=== PATIENT | female | born 1965 | race Caucasian/White ===

== ENCOUNTER 2020-02-25 11:39 | Emergency (ER) | payer MEDICAID, SELFPAY ==
[2020-02-25 11:55] VITALS: BP 149/86; PULSE 88; RESP 20; TEMP 37.2; O2SAT 98; BMI 33.0
--- NOTE | 2020-02-25 12:11 | HMH.EDUTC ---
[facility] [place] Clinical Impression: Exposure to COVID-19 virus Sinusitis Qualifiers: Sinusitis location: unspecified location Chronicity: acute Recurrence: non-recurrent Qualified Code(s): J01.90 - Acute sinusitis, unspecified Disposition: Home, Self-Care Condition on Discharge: Good Instructions: Sinusitis, DI for Sinusitis, Preventing the Spread of Coronavirus Discharge Instructions Additional Instructions: Drink plenty of fluids. Take tylenol for pain or fever. Take the medications as directed. Follow up with your regular doctor. GO TO THE ER FOR ANY WORSENING SYMPTOMS Prescriptions: Benzonatate [Tessalon Perle 100mg Cap] 100 mg PO TIDP PRN #30 cap PRN Reason: Cough Transmission Status: Received by [facility] Azithromycin [Z-Abilio 250mg Tab*] 250 mg PO UD DOSE PK #6 tab Transmission Status: Received by [facility] Referrals: Jabari Goncalves MD [Primary Care Provider] - Forms: Work/School Release Time of Disposition: 12:37 Medical Decision Making - Medical Records Medical records reviewed: No: I reviewed the patient's medical records. - Miki Inquiry Pt receiving controlled substance: No Vital Signs: 02/25/20 11:55 02/25/20 12:42 Temperature 98.9 F 98.9 F Temperature Source Oral Pulse Rate 88 Pulse Rate [Left Brachial] 88 Respiratory Rate 20 20 Blood Pressure 149/86 H Blood Pressure [Left Arm] 149/86 H Blood Pressure Mean [Left Arm] 107 Blood Pressure Source [Left Arm] Automatic Cuff Blood Pressure Position [Left Arm] Sitting 02 Sat by Pulse Oximetry 98 Oxygen Delivery Method Room Air Orders (Tests/Meds): ORDERS Category Date Time Status Covid-19 Nasal PCR Sendout Yoseph Routine Lab 02/25/20 12:00 Received [facility] [place]PI - General Stated complaint: congestion,fever Time Seen by Provider: 02/25/20 12:11 - History of Present Illness Provider Complaint: She states that she started feeling bad yesterday evening. This morning she woke up with a fever of 101.4, cough, chest congestion, and sinus congestion. She states that she usually gets a sinus infection every year at this time, so she hopes that is what's going on. 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 - Related Data Previous Rx's Medication Instructions Recorded Azithromycin [Z-Abilio 250mg Tab*] 250 mg PO UD DOSE PK #6 tab 02/25/20 Benzonatate [Tessalon Perle 100mg 100 mg PO TIDP PRN #30 cap 02/25/20 Cap] Allergies Allergy/AdvReac Type Severity Reaction Status Date / Time codeine [CODEINE] Allergy Unknown Verified 07/19/18 12:51 [facility] History - Hepatitis A Screen Attestation statement:: This patient has been screened for Hepatitis A risk factors. I have reviewed the patient's past medical history: Yes - Social History Smoking Status: Current every day smoker Tobacco Type: cigarettes Alcohol Intake: never Occupational Status: employed Housing: house Household Members: family Family Hx:: No significant family history ROS Obtained: Yes All systems reviewed & no additional complaints - Constitutional Constitutional: Reports chills, Reports fever(s), Reports poor appetite, Reports malaise - Eyes Eyes: Denies eye discharge - ENT Ears, Nose, Mouth, and Throat: Reports as per HPI - Cardiovascular Cardiovascular: Reports system reviewed and no additional complaints, except as docu, Denies chest pain - Respiratory Respiratory: No chest congestion, Yes cough Physical Exam - General General appearance: alert, in no apparent distress - Head Head exam: atraumatic, normocephalic, normal inspection - Eye Eye exam: Present: normal appearance, PERRL, EOMI - ENT ENT exam: Present: normal exam, normal oropharynx, mucous membranes moist, TM's normal bilaterally, normal external ear exam - Neck Neck exam: Present: normal inspection, full ROM, trachea midline. Absent: meningismus,
[2020-02-25 12:42] VITALS: BP 149/86; PULSE 88; RESP 20; TEMP 37.2; O2SAT 98
[2020-02-26 13:36] LABS: Covid-19 Nasal PCR Sendout Lex NOT DETECTED
[2020-02-27 11:38] LABS: UTC Strep Screen (Rapid) Negative (Negative)
== END 2020-02-25 12:45 | disposition home or self-care (01) ==
PROVIDERS: Emergency Provider Nurse Practitioner Family; PCP Family Medicine
DX: J01.90 Acute sinusitis, unspecified (principal); Z20.828 Contact with and (suspected) exposure to other viral communicable diseases; Z72.0 Tobacco use
CPT/HCPCS: 87880; 99202; U0004

== ENCOUNTER 2021-02-15 16:15 | Emergency (ER) | payer OTHER, SELFPAY ==
[2021-02-15 17:10] VITALS: BP 138/82; PULSE 86; RESP 16; TEMP 36.7; O2SAT 97; BMI 29.2
--- NOTE | 2021-02-15 18:00 | HMH.EDUTC ---
[facility] [place] Disposition Clinical Impression: Sinusitis Qualifiers: Sinusitis location: unspecified location Chronicity: acute Recurrence: non-recurrent Qualified Code(s): J01.90 - Acute sinusitis, unspecified Disposition: Home, Self-Care Condition on Discharge: Good Instructions: Sinusitis, DI for Sinusitis Additional Instructions: Drink plenty of fluids. Take tylenol or ibuprofen for pain or fever. Take the medications as directed. Follow up with your regular doctor. GO TO THE ER FOR ANY WORSENING SYMPTOMS Quarantine until you know the results of your covid-19 test. If it is positive, the health department should call you and give you further instructions about your length of Quarantine and other things. Notify your school or workplace of your results and follow their instructions regarding return to work/school. Prescriptions: methylPREDNISolone [Medrol] 4 mg PO DIRECTED 6 Days #21 packet Transmission Status: Received by [facility] Azithromycin [Z-Abilio 250mg Tab*] 250 mg PO UD DOSE PK #6 tab Transmission Status: Received by [facility] Referrals: Jabari Goncalves MD [Primary Care Provider] - Forms: Work/School Release Time of Disposition: 18:03 Medical Decision Making - Medical Records Medical records reviewed: No: I reviewed the patient's medical records. - Miki Inquiry Pt receiving controlled substance: No Vital Signs: 02/15/21 17:10 02/15/21 18:12 Temperature 98.1 F 98.1 F Temperature Source Oral Pulse Rate 86 Pulse Rate [Right Brachial] 86 Respiratory Rate 16 16 Blood Pressure 138/82 Blood Pressure [Right Arm] 138/82 Blood Pressure Mean [Right Arm] 100 Blood Pressure Source [Right Arm] Automatic Cuff Blood Pressure Position [Right Arm] Sitting 02 Sat by Pulse Oximetry 97 Oxygen Delivery Method Room Air Orders (Tests/Meds): ORDERS Category Date Time Status Covid-19 Nasal PCR ([facility]) Routine Lab 02/15/21 18:15 Received [facility] [place] HPI - General Stated complaint: head congested,ears Time Seen by Provider: 02/15/21 18:00 Mode of Arrival: Ambulatory Source of Information: Patient Limitations: No Limitations Description of Symptoms (Recalled from Triage Doc. by RN): PATIENT C/O EAR PAIN WITH DECREASED HEARING, LIGHT-HEADED, HEAD AND CHEST CONGESTION, HEADACHE AND WEAKNESS HEENT Symptoms (Recalled from RN notes): Yes Resp Symptoms (Recalled from RN notes): No Skin Symptoms (Recalled from RN notes): No MS Symptoms (Recalled from RN notes): No Functional Status (Recalled from RN notes): WNL - History of Present Illness Provider Complaint: She c/o 2 days of worsening sinus congestion and ear pain. She denies any fever or chills. She has been vaccinated against covid-19. - Related Data Previous Rx's Medication Instructions Recorded Azithromycin [Z-Abilio 250mg Tab*] 250 mg PO UD DOSE PK #6 tab 02/25/20 Benzonatate [Tessalon Perle 100mg 100 mg PO TIDP PRN #30 cap 02/25/20 Cap] Azithromycin [Z-Abilio 250mg Tab*] 250 mg PO UD DOSE PK #6 tab 02/15/21 methylPREDNISolone [Medrol] 4 mg PO DIRECTED 6 Days #21 02/15/21 packet Allergies Allergy/AdvReac Type Severity Reaction Status Date / Time codeine [CODEINE] Allergy Unknown Verified 07/19/18 12:51 - Worker's Comp Is this a Worker's Comp case?: No [facility] History - Hepatitis A Screen Drug use history?: No High risk sexual behaviors?: No History of sexually transmitted infection?: No Currently employed?: No Childcare worker?: No Do you have indoor plumbing?: Yes Do you have electricity?: Yes Attestation statement:: This patient has been screened for Hepatitis A risk factors. I have reviewed the patient's past medical history: Yes Laterality Cases: Bilateral: Tonsillectomy - Social History Smoking Status: Current every day smoker Tobacco Type: cigarettes Alcohol Intake: never Occupational Status: other Housing: house Household Members: family Family Hx:: No significant family hi
[2021-02-15 18:12] VITALS: BP 138/82; PULSE 86; RESP 16; TEMP 36.7; O2SAT 97
== END 2021-02-15 18:18 | disposition home or self-care (01) ==
PROVIDERS: Emergency Provider Nurse Practitioner Family; PCP Family Medicine
DX: J01.90 Acute sinusitis, unspecified (principal); F17.210 Nicotine dependence, cigarettes, uncomplicated; Z20.822 Contact with and (suspected) exposure to COVID-19
CPT/HCPCS: 99202; C9803; G0463; U0003; U0005

== ENCOUNTER 2021-07-24 12:17 | Emergency (ER) | payer OTHER, SELFPAY ==
[2021-07-24] VITALS (8 sets, daily range): BP systolic 139–174; BP diastolic 89–103; PULSE 80–90; RESP 14–20; TEMP 36.8; O2SAT 98–100; BMI 28.7
--- NOTE | 2021-07-24 12:15 | ECG_ITS ---
APPROVED REPORT Exam: Resting ECG HR:85 bpm ECG Measurements Heart Rate 85 AXES IA 131 P 67 QRSd 89 QRS 68 QT 353 T 50 QTc 395 Conclusion SINUS RHYTHM NORMAL ECG UNCONFIRMED REPORT Electronically signed by : Dean Davila MD 07/28/2021 17:37:35
--- NOTE | 2021-07-24 12:26 | XR_ITS ---
PROCEDURE INFORMATION: Exam: XR Chest Exam date and time: 07/24/2021 12:28 PM Age: 56 years old Clinical indication: Pain; Chest pressure; Additional info: Chest pain TECHNIQUE: Imaging protocol: XR of the chest. Views: 1 view. COMPARISON: CR CXR CHEST(2 VIEWS-NOT PORTABLE) 05/17/2016 1:03 PM FINDINGS: Lungs: No evidence of an active pulmonary process. No focal consolidation. Old granulomatous disease. Pleural spaces: Unremarkable. No pleural effusion. No pneumothorax. Heart/Mediastinum: Unremarkable. No cardiomegaly. Bones/joints: Scoliosis and degenerative changes of the spine. IMPRESSION: No acute process.
--- NOTE | 2021-07-24 12:28 | PC.NURSE ---
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
[2021-07-24 12:42] LABS: Basophils # 0.2 K/mm3 (0-0.2); Basophils % 2.2 % (0.1-2.0); Eosinophils # 0.1 K/mm3 (0.0-0.4); Eosinophils % 1.4 % (0.1-12.0); Hematocrit 43.2 % (37.0-47.0); Hemoglobin 13.7 g/dL (12.2-16.2); Lymphocytes # 2.9 K/mm3 (0.7-4.5); Lymphocytes % 35.5 % (10-50); Mean Corpuscular HGB Conc 31.6 g/dL (31.8-35.4); Mean Corpuscular Volume 98.2 fl (81-99); Mean Platelet Volume 8.7 fl (7.4-10.4); Monocytes # 0.5 K/mm3 (0.1-1.0); Monocytes % 5.8 % (1.7-9.3); Neutrophils # 4.5 K/mm3 (1.8-7.8); Neutrophils % 55.1 % (37.0-80.0); Platelet Count 287 K/mm3 (142-424); Red Cell Distribution Width 13.3 % (11.5-17.5); White Blood Count 8.2 K/mm3 (4.8-10.8)
[2021-07-24 12:43] LABS: Chloride 102 mmol/L (98-107); Potassium 3.9 mmoL/L (3.5-5.1); Sodium 136 mmol/L (136-145)
[2021-07-24 12:46] LABS: Alanine Aminotransferase 27 U/L (12-78); Albumin Level 4.3 g/dl (3.5-5.0); Albumin/Globulin Ratio 1.4 (1.1-1.8); Alkaline Phosphatase 64 U/L (38-126); Anion Gap 8.9 mEq/L (5-15); Aspartate Amino Transferase 39 U/L (14-36); Bilirubin,Total 0.6 mg/dl (0.2-1.3); Blood Urea Nitrogen 13 mg/dl (7-17); Carbon Dioxide 29 mmol/L (22.0-30.0); Creatinine Clearance Estimated 117 mL/min (50-200); Estimated Glomerular Filt Rate 104 ml/min (>60); GFR (African American) 126 ML/MIN (>60); Globulin 3.1 g/dL (1.3-3.2); Total Protein,Serum 7.4 g/dl (6.3-8.2)
[2021-07-24 12:47] LABS: Calcium 8.9 mg/dl (8.4-10.2); Glucose 102 mg/dl (74-100)
[2021-07-24 13:01] LABS: Troponin I < 0.01 ng/ml (0.00-0.034)
[2021-07-24 13:06] LABS: Activated Partial Thrombo Time 23.7 seconds (22.8-30.6); INR 0.98 (0.9-1.1); Prothrombin Time 11.1 seconds (10.1-12.5)
--- NOTE | 2021-07-24 13:41 | HMH.EDCP ---
ED Disposition Clinical Impression: Chest pain Disposition: Home, Self-Care Condition on Discharge: Fair Referrals: Jabari Goncalves MD [Primary Care Provider] - - Critical Care Critical Care Time: No Attestation: On 07/24/21, the high probability of a clinically significant, sudden or life threatening deterioration of the following system(s) required my full and direct attention, intervention and personal management. The time I documented below is in addition to time spent performing reported procedures but includes the following listed in this critical care notation. Medical Decision Making - Medical Records Medical records reviewed: Yes: I reviewed the patient's medical records. - Miki Inquiry Pt receiving controlled substance: No Miki was queried for this patient: No Vital Signs: 07/24/21 12:28 07/24/21 13:08 07/24/21 13:10 Temperature 98.2 F Temperature Source Oral Pulse Rate 89 82 Pulse Rate [Left Radial] 80 Respiratory Rate 17 18 17 Blood Pressure 157/103 H 151/99 H Blood Pressure [Right Arm] 174/102 H Blood Pressure Mean 117 Blood Pressure Mean [Right Arm] 126 Blood Pressure Source Automatic Cuff 02 Sat by Pulse Oximetry 100 98 99 07/24/21 13:30 07/24/21 13:50 07/24/21 14:10 Temperature Temperature Source Pulse Rate 86 90 89 Pulse Rate [Left Radial] Respiratory Rate 14 20 18 Blood Pressure 151/93 H 161/99 H 149/91 H Blood Pressure [Right Arm] Blood Pressure Mean 116 118 123 Blood Pressure Mean [Right Arm] Blood Pressure Source 02 Sat by Pulse Oximetry 98 99 98 07/24/21 14:30 Temperature Temperature Source Pulse Rate 86 Pulse Rate [Left Radial] Respiratory Rate 16 Blood Pressure 139/90 Blood Pressure [Right Arm] Blood Pressure Mean 112 Blood Pressure Mean [Right Arm] Blood Pressure Source 02 Sat by Pulse Oximetry 98 - Lab Data Lab results reviewed: Yes: I reviewed the patient's lab results. Lab Results 07/24/21 12:19: WBC 8.2, RBC 4.40, Hgb 13.7, Hct 43.2, MCV 98.2, MCH 31.0, MCHC 31.6 L, RDW 13.3, Plt Count 287, MPV 8.7, Neut % (Auto) 55.1, Lymph % (Auto) 35.5, Caroline % (Auto) 5.8, Eos % (Auto) 1.4, Baso % (Auto) 2.2 H, Neut # (Auto) 4.5, Lymph # (Auto) 2.9, Caroline # (Auto) 0.5, Eos # (Auto) 0.1, Baso # (Auto) 0.2 07/24/21 12:19: PT 11.1, INR 0.98, APTT 23.7 07/24/21 12:19: Sodium 136, Potassium 3.9, Chloride 102, Carbon Dioxide 29, Anion Gap 8.9, BUN 13, Creatinine 0.60, Estimated Creat Clear 117, Estimated GFR 104, Est GFR ( Amer) 126, Glucose 102 H, Calcium 8.9, Total Bilirubin 0.6, AST 39 H, ALT 27, Alkaline Phosphatase 64, Troponin I < 0.01, Total Protein 7.4, Albumin 4.3, Globulin 3.1, Albumin/Globulin Ratio 1.4 Result diagrams: 07/24/21 12:19 07/24/21 12:19 Orders (Tests/Meds): ORDERS Category Date Time Status Troponin I Q3H Lab 07/24/21 15:30 Ordered Troponin I Q3H Lab 07/24/21 18:30 Ordered Medical Decision Narrative: Is a 56 female with past medical history of hyperlipidemia presenting to the ED for chest pain. Patient is awake, alert, not in acute distress. Patient is medically stable, afebrile. Patient's physical exam is unremarkable. Differential includes but is not limited to ACS, pneumothorax, very low concern for pulmonary embolism, aortic dissection. Given this a CBC, CMP, coags, troponin performed, chest x-ray performed. Chest x-ray without any widened mediastinum, pneumonia, pneumothorax. EKG without any ST elevations or depressions. lab work unremarkable, initial troponin negative. second troponin negative. Patient is stable for discharge. Patient given strict return precautions and follow up instructions. Chest Pain HPI - General Chief Complaint: Chest Pain Stated Complaint: CP Time Seen by Provider: 07/24/21 13:41 Mode of Arrival: Ambulatory Limitations: No Limitations Description of Symptoms (Recalled from ER Triage Doc. by RN): pt to ed c/o left sided chest pain that radiates bet
--- NOTE | 2021-07-24 14:40 | PC.NURSE ---
updated on poc
[2021-07-24 15:59] LABS: Troponin I < 0.01 ng/ml (0.00-0.034)
== END 2021-07-24 16:10 | disposition home or self-care (01) ==
PROVIDERS: Emergency Provider Emergency Medicine; PCP Family Medicine
DX: R07.9 Chest pain, unspecified (principal); E53.1 Pyridoxine deficiency; R61 Generalized hyperhidrosis; E78.5 Hyperlipidemia, unspecified; F17.210 Nicotine dependence, cigarettes, uncomplicated; Z79.52 Long term (current) use of systemic steroids; Z79.82 Long term (current) use of aspirin; Z88.5 Allergy status to narcotic agent
CPT/HCPCS: 36415; 71045; 80053; 84484; 85025; 85610; 85730; 93005; 99284

== ENCOUNTER → 2021-11-03 07:01 | Outpatient (CLI) | payer OTHER, SELFPAY ==
[2021-11-03 07:35] LABS: Basophils # 0.1 K/mm3 (0-0.2); Basophils % 1.2 % (0.1-2.0); Eosinophils # 0.2 K/mm3 (0.0-0.4); Eosinophils % 2.8 % (0.1-12.0); Hemoglobin 13.2 g/dL (12.2-16.2); Lymphocytes % 38.3 % (10-50); Mean Corpuscular HGB Conc 30.8 g/dL (31.8-35.4); Mean Corpuscular Volume 104.1 fl (81-99); Mean Platelet Volume 8.7 fl (7.4-10.4); Monocytes # 0.5 K/mm3 (0.1-1.0); Monocytes % 9.6 % (1.7-9.3); Neutrophils # 2.6 K/mm3 (1.8-7.8); Neutrophils % 48.1 % (37.0-80.0); Platelet Count 269 K/mm3 (142-424); Red Blood Count 4.13 M/mm3 (4.20-5.40); Red Cell Distribution Width 15.5 % (11.5-17.5); White Blood Count 5.3 K/mm3 (4.8-10.8)
[2021-11-03 08:15] LABS: Chloride 104 mmol/L (98-107); Sodium 139 mmol/L (136-145)
[2021-11-03 08:16] LABS: Potassium 4.9 mmoL/L (3.5-5.1)
[2021-11-03 08:18] LABS: Alanine Aminotransferase 20 U/L (12-78); Alkaline Phosphatase 61 U/L (38-126); Anion Gap 7.9 mEq/L (5-15); Aspartate Amino Transferase 33 U/L (14-36); Bilirubin,Total 0.3 mg/dl (0.2-1.3); Carbon Dioxide 32 mmol/L (22.0-30.0)
[2021-11-03 08:19] LABS: Albumin Level 3.9 g/dl (3.5-5.0); Albumin/Globulin Ratio 1.5 (1.1-1.8); Calcium 9.6 mg/dl (8.4-10.2); Globulin 2.6 g/dL (1.3-3.2); Glucose 110 mg/dl (74-100); Total Protein,Serum 6.5 g/dl (6.3-8.2)
[2021-11-03 08:51] LABS: Thyroid Stimulating Hormone 2.74 uIU/mL (0.465-4.68)
[2021-11-03 11:48] LABS: Blood Urea Nitrogen 14 mg/dl (7-17); Estimated Glomerular Filt Rate 87 ml/min (>60); GFR (African American) 106 ML/MIN (>60)
== END ==
PROVIDERS: PCP Family Medicine; Visit Provider Family Medicine
DX: R00.0 Tachycardia, unspecified (principal); K58.9 Irritable bowel syndrome, unspecified; F32.9 Major depressive disorder, single episode, unspecified
CPT/HCPCS: 36415; 80053; 84443; 85025

== ENCOUNTER → 2022-05-10 10:50 | Outpatient (CLI) | payer OTHER, SELFPAY ==
--- NOTE | 2022-05-10 10:59 | XR_ITS ---
FINAL REPORT CLINICAL HISTORY: R SIDED CHEST AND WALL PAIN, no injury COMPARISON: Chest radiograph dated 07/24/2021 FINDINGS: A PA view of the chest and oblique views of the right ribs were obtained The cardiac and mediastinal silhouettes are within normal limits. There is new right perihilar and right basilar airspace disease concerning for pneumonia. There is a new small right pleural effusion. There is no pneumothorax. Oblique views of the right ribs reveal no displaced rib fracture. IMPRESSION: 1. No acute right rib fracture and no pneumothorax. 2. New right perihilar basilar airspace opacities concerning for pneumonia with a small right effusion. Recommend radiograph follow-up to resolution. Reviewed, Interpreted and Dictated by Tata Rojas MD Transcribed by Bety Perera Authenticated and [facility]
== END ==
PROVIDERS: PCP Family Medicine; Visit Provider Family Medicine
DX: R07.89 Other chest pain (principal)
CPT/HCPCS: 71101

== ENCOUNTER → 2022-05-31 07:31 | Outpatient (CLI) | payer OTHER, SELFPAY ==
[2022-05-31 07:37] LABS: Adenovirus F 40/41, stool Not Detected (NotDetected); Astrovirus Not Detected (NotDetected); Campylobacter Not Detected (NotDetected); Clostridium Difficile A/B, PCR Not Detected (NotDetected); Cryptosporidium Not Detected (NotDetected); Cyclospora Cayetanesis Not Detected (NotDetected); Entamoeba histolytica Not Detected (NotDetected); Enteroaggregative E coli Not Detected (NotDetected); Enteropathogenic E coli Not Detected (NotDetected); Enterotoxigenic E coli Not Detected (NotDetected); Giardia lamblia Not Detected (NotDetected); Norovirus Not Detected (NotDetected); Plesimonas Shigalloides, PCR Not Detected (NotDetected); Rotavirus A Not Detected (NotDetected); Salmonella, PCR Not Detected (NotDetected); Sapovirus Not Detected (NotDetected); Shiga-like toxin E coli Not Detected (NotDetected); Shigella Enterovasive E coli Not Detected (NotDetected); Vibrio Cholerae Not Detected (NotDetected); Vibrio, PCR Not Detected (NotDetected); Yersinia Entercolitica, PCR Not Detected (NotDetected)
== END ==
PROVIDERS: PCP Family Medicine; Visit Provider Nurse Practitioner Family
DX: R19.7 Diarrhea, unspecified (principal)
CPT/HCPCS: 87507

== ENCOUNTER 2022-06-08 10:24 | Emergency (ER) | payer OTHER, SELFPAY ==
[2022-06-08 10:26] VITALS: BP 114/80; PULSE 113; RESP 18; TEMP 36.5; O2SAT 96; BMI 26.7
--- NOTE | 2022-06-08 10:37 | PC.NURSE ---
CLIFFORD GOLDSTEIN at for patient eval
[2022-06-08 10:45] VITALS: BP 114/80; PULSE 106; RESP 16; TEMP 36.7; O2SAT 96
--- NOTE | 2022-06-08 10:45 | HMH.EDGENADL ---
Discharge Plan Disposition Patient Disposition: Home, Self-Care Condition: Good Prescriptions Prescriptions: New valacyclovir [Valtrex] 1 gram tablet 1,000 mg PO BID 7 Days Qty: 14 0RF prednisone 50 mg tablet 50 mg PO DAILY 7 Days Qty: 7 0RF No Action azithromycin 250 MG tablet 250 mg PO UD DOSE PK Qty: 6 0RF Rx Instructions: Take two (2) tablets today, then one (1) tablet days #2 thru #5 benzonatate 100 MG capsule 100 mg PO TIDP PRN (Reason: Cough) Qty: 30 0RF azithromycin 250 MG tablet 250 mg PO UD DOSE PK Qty: 6 0RF Rx Instructions: Take two (2) tablets today, then one (1) tablet days #2 thru #5 methylprednisolone 4 MG tablets,dose pack 4 mg PO DIRECTED 6 Days Qty: 21 0RF Referrals Follow up/Referrals: Jabari Goncalves MD [Primary Care Provider] - See instructions Activity Restrictions/Add. Instructions Additional Instructions/Restrictions: Avoid extremely hot and extremely cold foods. Apply artificial tears to the right eye hourly while awake and tape the eye shut at nighttime. Clinical Impressions Clinical Impression: Jones's palsy Stand Alone Forms Stand Alone Forms: Work/School Release Discharge ED Provider: Alon Pritchard General Adult HPI General Stated complaint: face drooping, post pneumonia tightness in chest Time Seen by Provider: 06/08/22 10:36 History of Present Illness HPI narrative: Patient presents with a 2-day history of right-sided facial droop. She describes symptoms as moderate without exacerbating alleviating factors. She was recently treated for pneumonia followed by C. difficile. She denies fever today. She denies additional neurological symptoms. Related Data Previous Rx's Medication Instructions Recorded azithromycin 250 mg tablet 250 mg PO UD DOSE PK #6 tabs 02/25/20 benzonatate 100 mg capsule 100 mg PO TIDP PRN Cough #30 caps 02/25/20 azithromycin 250 mg tablet 250 mg PO UD DOSE PK #6 tabs 02/15/21 methylprednisolone 4 mg tablets in 4 mg PO DIRECTED 6 days #21 02/15/21 a dose pack packets prednisone 50 mg tablet 50 mg PO DAILY 7 days #7 tabs 06/08/22 valacyclovir 1 gram tablet 1,000 mg PO BID 7 days #14 tabs 06/08/22 (Valtrex) Allergies Allergy/AdvReac Type Severity Reaction Status Date / Time codeine [CODEINE] Allergy Unknown Verified 07/19/18 12:51 [facility] Disclaimer: The information contained in this section may have been updated after the patient was seen, as this information can be updated by other users. Social History Smoking Status: Current every day smoker tobacco type: cigarettes alcohol intake: never current occupational status: other Travel in the last 8 weeks: None household members: family housing: house ROS Obtained: Yes All systems reviewed & no additional complaints except as documented Physical Exam General General appearance: alert and in no apparent distress Head Head exam: atraumatic, normocephalic and normal inspection Eye Eye exam: Present normal appearance, PERRL and EOMI ENT ENT exam: Present other (There is right-sided facial droop with involvement of the forehead. Decreased ability to blink is noted with the right eyelid.) Neck Neck exam: Present normal inspection, full ROM and trachea midline; Absent meningismus or lymphadenopathy Chest Chest inspection: Present normal inspection and symmetric chest wall rise; Absent tenderness Respiratory Respiratory exam: Present normal lung sounds bilaterally; Absent respiratory distress Cardiovascular Cardiovascular exam: Present regular rate and normal rhythm; Absent JVD Abdominal Exam Abdominal exam: Present soft and normal bowel sounds; Absent distention, tenderness or guarding Extremities Exam Extremities exam: Present normal inspection, full ROM and normal capillary refill; Absent calf tenderness Back Exam Back exam: Present normal inspection; Absent tenderness Mar
== END 2022-06-08 10:50 | disposition home or self-care (01) ==
PROVIDERS: Emergency Provider Emergency Medicine; PCP Family Medicine
DX: G51.0 Bell's palsy (principal); R07.89 Other chest pain; F17.299 Nicotine dependence, other tobacco product, with unspecified nicotine-induced disorders
CPT/HCPCS: 99283; 99284

== ENCOUNTER 2022-06-22 12:28 | Observation (INO) | payer OTHER, SELFPAY ==
--- NOTE | 2022-06-22 12:39 | PC.NURSE ---
arrived to floor from front lobby by w/c
--- NOTE | 2022-06-22 12:41 | PC.NURSE ---
Patient arrived to the floor via wheelchair.
--- NOTE | 2022-06-22 12:43 | XR_ITS ---
FINAL REPORT CLINICAL HISTORY: congested cough COMPARISON: 05/10/2022 FINDINGS: PA and lateral views of the chest were obtained. Heart size is normal. There has been no significant change in the right middle lobe airspace disease. There is an abnormal right hilar contour. There is a masslike opacity in the posterior right upper lobe which is more rounded than on the previous study. There are small bilateral pleural effusions. No pneumothorax. No acute osseous abnormality is identified. IMPRESSION: Persistent right middle lobe airspace disease. Given persistence of abnormality, central obstructing lesion is not excluded. Possible right upper lobe mass. CT chest with contrast recommended. Reviewed, Interpreted and Dictated by Tata Rojas MD Transcribed by Mindi Hylton Authenticated and [facility]
[2022-06-22 12:44] VITALS: BP 102/66; PULSE 115; RESP 18; TEMP 36.6; O2SAT 96; BMI 26.2
--- NOTE | 2022-06-22 12:51 | CT_ITS ---
FINAL REPORT TECHNIQUE: Pre-and postcontrast axial imaging of the abdomen and pelvis was obtained.This study was performed with techniques to keep radiation doses as low as reasonably achievable, (ALARA). Individualized dose reduction technique using automated exposure control or adjustment of mA and/or kV according to the patient's size were employed. CLINICAL HISTORY: diffuse severe abdominal pain with guarding FINDINGS: There is likely complete collapse of the right middle lobe. There is a pulmonary nodule in the left lower lobe measuring 11 mm well seen on image 6 concerning for metastases. Small bilateral pleural effusions are identified. The liver is enlarged with innumerable hypodense liver lesions consistent with metastases. Index lesion in the left lobe measures 4.3 cm. Lesion in the inferior right lobe measures 3.2 cm. The spleen, adrenal glands, and pancreas are unremarkable. There is a wedge shaped hypodense left kidney, small infarct is not excluded. There is no hydronephrosis. There is no small bowel obstruction. There are enlarged gastrohepatic ligament lymph nodes. Index lesion measures 18 mm well seen on image number 22. There is no evidence of ascites. There is atherosclerotic disease of the abdominal aorta. The uterus is present. The bladder is unremarkable. There is diverticulosis without evidence of diverticulitis. There is long segment colon wall thickening favored to be related to incomplete distension, mild colitis is not excluded. The appendix is normal. There is no lymphadenopathy or ascites. There are several sclerotic bone lesions, bone metastases is not excluded. IMPRESSION: Innumerable liver lesions consistent with metastatic disease. One lesion would be amenable to percutaneous biopsy. Right middle lobe collapse, possibly related to postobstructive atelectasis or pneumonia. Consider CT to evaluate for lung mass given hepatic metastases. Gastrohepatic ligament lymphadenopathy concerning for metastases. Possible sclerotic bone metastases. Reviewed, Interpreted and Dictated by Tata Rojas MD Transcribed by Hortensia Cates Authenticated and . [facility]
--- NOTE | 2022-06-22 13:09 | EXP.HP ---
History of Present Illness *Admission Date: 06/22/22 *Reason for visit:: Acute abdominal pain; dehydration *History of present illness: Ms. Zeng is a 56-year-old female with a history of hypertension, hyperlipidemia, tachycardia, smoking disorder, and recent Jones's palsy and diarrhea and abdominal pain who presented to the office of [facility] for follow-up on Jones's palsy and her abdominal pain. She has been seen in the office several times for the diarrhea and last diarrhea panel was negative. She does have a history of recent C. difficile and has had 7 days of Flagyl. Diarrhea did improve but never completely resolved. She is also experienced some nausea and vomiting. The abdominal pain initially was mostly in the right upper quadrant and a right upper quadrant ultrasound was ordered. Insurance will not cover and she did not have it completed. When seen in the office last week CT of the abdomen/pelvis was ordered and again her insurance would not cover in most facilities. Arrangements were going to be made for her to have this done either in [place] or [place] if necessary. Meanwhile the abdominal pain worsened and with follow-up today was severe. She has not had a fever but does have some upper respiratory symptoms to include a congested cough. She is voiding QS. She denies hematemesis and any bloodly or black stools. CBC showed a white count of 10,100. She was receiving a tapering dose of prednisone for her Jones's palsy. This seems to have improved. With presentation today she appears miserable due to the abdominal pain. Case was discussed with Dr. Goncalves and decision made to admit her having failed outpatient treatment with Bentyl. She will have CT of the abdomen and pelvis along with diarrhea panel and sepsis protocol. [facility] Disclaimer: The information contained in this section may have been updated after the patient was seen, as this information can be updated by other users. Surgical History (Updated 06/22/22 @ 13:19 by Hortensia Bhandari APRN) H/O knee surgery Hx of hand surgery S/P carpal tunnel release Family History (Updated 06/22/22 @ 13:35 by Hortensia Bhandari APRN) Coronary artery disease Social History Smoking Status: Current every day smoker tobacco type: cigarettes alcohol intake: never current occupational status: other Travel in the last 8 weeks: None household members: family housing: house Review of Systems Constitutional Constitutional: Denies fever(s), Denies headache(s), Reports poor appetite, Reports lethargy and Reports weakness Eyes Eyes: Reports change in vision and Reports dry eyes (right) ENT Ears, Nose, Mouth, and Throat: Denies otalgia, Denies headache(s) and Denies sore throat *Cardiovascular Cardiovascular: Denies chest pain and Reports rapid heart rate *Respiratory Respiratory: Reports chest congestion, Reports cough, Denies hemoptysis and Reports pain with cough *Gastrointestinal Gastrointestinal: Reports abdominal pain, Denies belching, Reports bloating, Denies dyspepsia, Denies hematemesis, Denies hematochezia, Reports loose stools (multiple diarrhea stools), Reports nausea and Reports vomiting *Genitourinary Genitourinary: Denies difficulty voiding and Reports pelvic pain *Musculoskeletal Musculoskeletal: Denies arthralgias and Denies joint swelling *Neurologic Neurologic: Denies abnormal speech, Denies behavioral changes, Denies confusion, Denies headache(s) and Reports weakness Psychiatric Psychiatric: Denies behavioral changes and Denies confusion Meds Home Medications and Allergies Home Medications Medication Instructions Recorded Confirmed Type dicyclomine 20 mg tablet 40 mg PO QID Irritabe bowel 06/22/22 06/22/22 History duloxetine 60 mg capsule,delayed 60 mg PO DAILY Depression 06/22/22 06/22/22 History release prednisone 10 mg tablet 10 mg PO BID Infection 06/22/22 06/22/22 History v
[2022-06-22 13:36] LABS: Chloride 98 mmol/L (98-107); Potassium 3.6 mmoL/L (3.5-5.1); Sodium 131 mmol/L (136-145)
[2022-06-22 13:37] LABS: Basophils # 0.1 K/mm3 (0-0.2); Basophils % 0.9 % (0.1-2.0); Eosinophils # 0.1 K/mm3 (0.0-0.4); Eosinophils % 0.9 % (0.1-12.0); Hematocrit 38.5 % (37.0-47.0); Hemoglobin 12.5 g/dL (12.2-16.2); Lactic Acid 1.6 mmol/L (0.7-2.1); Lymphocytes # 1.7 K/mm3 (0.7-4.5); Lymphocytes % 17.8 % (10-50); Mean Corpuscular HGB Conc 32.5 g/dL (31.8-35.4); Mean Corpuscular Hemoglobin 28.8 pg (27.0-31.2); Mean Corpuscular Volume 88.5 fl (81-99); Mean Platelet Volume 9.3 fl (7.4-10.4); Monocytes # 0.7 K/mm3 (0.1-1.0); Monocytes % 6.8 % (1.7-9.3); Neutrophils # 7.2 K/mm3 (1.8-7.8); Neutrophils % 73.7 % (37.0-80.0); Platelet Count 250 K/mm3 (142-424); Red Blood Count 4.35 M/mm3 (4.20-5.40); Red Cell Distribution Width 14.2 % (11.5-17.5); White Blood Count 9.8 K/mm3 (4.8-10.8)
[2022-06-22 13:38] LABS: Amylase 81 U/L (30-110); Lipase 200 U/L (23-300)
[2022-06-22 13:39] LABS: Alanine Aminotransferase 90 U/L (12-78); Albumin Level 3.3 g/dl (3.5-5.0); Albumin/Globulin Ratio 1.3 (1.1-1.8); Alkaline Phosphatase 396 U/L (38-126); Anion Gap 10.6 mEq/L (5-15); Aspartate Amino Transferase 154 U/L (14-36); Bilirubin,Total 0.6 mg/dl (0.2-1.3); Blood Urea Nitrogen 10 mg/dl (7-17); Calcium 8.5 mg/dl (8.4-10.2); Carbon Dioxide 26 mmol/L (22.0-30.0); Creatinine Clearance Estimated 206 mL/min (50-200); Estimated Glomerular Filt Rate 232 ml/min (>60); GFR (African American) 281 ML/MIN (>60); Globulin 2.6 g/dL (1.3-3.2); Glucose 92 mg/dl (74-100); Magnesium 1.6 mg/dl (1.6-2.3); Phosphorous 3.2 mg/dl (2.5-4.5); Total Protein,Serum 5.9 g/dl (6.3-8.2)
[2022-06-22 14:13] LABS: Coronavirus 19, PCR Not Detected (NotDetected); Influenza A, PCR Not Detected (NotDetected); Influenza B, PCR Not Detected (NotDetected)
[2022-06-22 15:16] VITALS: BP 110/64; PULSE 98; RESP 18; TEMP 36.7; O2SAT 96
[2022-06-22 15:44] LABS: Microscopic, Urine URINE MICROSCOPIC (MICROSCOPIC)
[2022-06-22 16:33] LABS: Appearance,Urine CLEAR (Clear); Blood, Urine Negative (Negative); Color,Urine YELLOW (Yellow); Glucose,Urine (UA) Negative (Negative); Ketones,Urine 1+ (Negative); Leukocyte Esterase,Urine Negative (Negative); Nitrate,Urine Negative (Negative); Protein,Urine TRACE (Negative); Urobilinogen,Urine 0.2 EU/dl (0.2)
[2022-06-22 17:17] LABS: Bilirubin,Urine Negative (Negative)
[2022-06-22 17:23] LABS: Bacteria,Urine Trace /lpf
--- NOTE | 2022-06-22 17:24 | CT_ITS ---
PROCEDURE INFORMATION: Exam: CT Chest With Contrast; Diagnostic Exam date and time: 06/22/2022 5:55 PM Age: 56 years old Clinical indication: Abnormal findings; Other: Abnormal chest x-ray and abdominal cat scan; Additional info: Abnormal cxr, possible liver mets TECHNIQUE: Imaging protocol: Diagnostic computed tomography of the chest with contrast. Radiation optimization: All CT scans at this facility use at least one of these dose optimization techniques: automated exposure control; mA and/or kV adjustment per patient size (includes targeted exams where dose is matched to clinical indication); or iterative reconstruction. Contrast material: ISOVUE; Contrast volume: 75 ml; Contrast route: IV; REPORTING DATA: Count of CT and Cardiac NM exams in prior 12 months: This patient has received [address] and 0 known cardiac nuclear medicine studies in the 12 months prior to the current study. COMPARISON: CR XR CHEST 2V 06/22/2022 3:12 PM FINDINGS: Lungs: There is a subpleural mass in the posterolateral right upper lobe measuring approximally 3.3 cm in greatest diameter which exhibits lobulated and partially spiculated margins. There is a 10 mm noncalcified nodule located centrally in the left lung base. There is a 5 mm calcified granuloma located centrally in the left lower lobe. Patchy gland glass and alveolar opacities noted throughout the right upper lobe predominantly about the above-described masses. Pleural spaces: There are small bilateral pleural effusions. Heart: Unremarkable. No cardiomegaly. No pericardial effusion. Lymph nodes: There is significant right hilar and mediastinal lymphadenopathy with right hilar mass partially obscured by postobstructive atelectasis of the right middle lobe but measuring at least 4.4 cm in diameter and producing obstruction of the right middle lobe bronchus and completely encasing the distal portion of the right main pulmonary artery and its branches. Mediastinal lymphadenopathy includes right paratracheal, precarinal and subcarinal lymph nodes Vasculature: Unremarkable. No aortic aneurysm. Liver: Innumerable moderate-size liver masses are noted diffusely throughout the liver. Liver is enlarged and nodular in contour. Adrenal glands: There is a 14 mm isodense left adrenal nodule. Right adrenal gland appears normal Bones/joints: There is significant thoracolumbar scoliosis with moderate multilevel degenerative disc disease. Soft tissues: Unremarkable. IMPRESSION: 1. Significant findings of metastatic malignancy in the right chest including peripheral right upper lobe 3.3 cm pulmonary mass as well as significant right hilar and mediastinal lymphadenopathy producing postobstructive atelectasis of the right middle lobe and encasing right hilar structures as described. 2. Patchy ground-glass and alveolar opacities in the right upper lobe compatible with active pneumonitis 3. 10 mm noncalcified pulmonary nodule in the left lung base. While this could represent a contralateral metastatic lesion, the presence of an adjacent 5 mm calcified granulomas suggests this could represent a noncalcified granuloma. 4. Numerous metastatic lesions noted throughout the visualized portion of the liver 5. 13 mm nonspecific left adrenal nodule. Metastatic lesion not excluded 6. Minimal bilateral pleural effusions and chronic osseous changes as described Fleischner Society follow up recommendations for incidental nodules are not indicated. Follow up per the patient's medical condition.
[2022-06-22 18:44] LABS: Adenovirus F 40/41, stool Not Detected (NotDetected); Astrovirus Not Detected (NotDetected); Campylobacter Not Detected (NotDetected); Clostridium Difficile A/B, PCR Not Detected (NotDetected); Cryptosporidium Not Detected (NotDetected); Cyclospora Cayetanesis Not Detected (NotDetected); Entamoeba histolytica Not Detected (NotDetected); Enteroaggregative E coli Not Detected (NotDetected); Enteropathogenic E coli Not Detected (NotDetected); Enterotoxigenic E coli Not Detected (NotDetected); Giardia lamblia Not Detected (NotDetected); Norovirus Not Detected (NotDetected); Plesimonas Shigalloides, PCR Not Detected (NotDetected); Rotavirus A Not Detected (NotDetected); Salmonella, PCR Not Detected (NotDetected); Sapovirus Not Detected (NotDetected); Shiga-like toxin E coli Not Detected (NotDetected); Shigella Enterovasive E coli Not Detected (NotDetected); Vibrio Cholerae Not Detected (NotDetected); Vibrio, PCR Not Detected (NotDetected); Yersinia Entercolitica, PCR Not Detected (NotDetected)
[2022-06-22 20:00] VITALS: BP 132/75; PULSE 113; PULSE 114; RESP 18; TEMP 36.8; O2SAT 93; O2SAT 94
[2022-06-23] VITALS (7 sets, daily range): BP systolic 115–128; BP diastolic 64–83; PULSE 105–114; RESP 16–20; TEMP 36.6–36.9; O2SAT 90–93; BMI 26.5
--- NOTE | 2022-06-23 05:37 | PC.NURSE ---
pt is alert and oriented x4, pt noted with muscle weakness on right side face from bells palsy diagnosis, skin pwd and without edema, pt has been without complaints of abdominal pain this shift, however pt has complained of headache rated 8-9/10 and tenderness to touch on left side muslim area, tylenol given as prescribed with relief, pt remains tachycardic with hr 107-114, lungs cta, hypoactive bs, no acute distress or concerns at this time.
--- NOTE | 2022-06-23 08:12 | EXP.ACUTE.PN ---
Subjective *Date: 06/23/22 *Time: 09:53 Interval history: Patient states she has had a headache on the left side since last night that has been pretty severe. She continues with abdominal and chest pain but has not had any further vomiting. She has been able to tolerate a diet. Medical Exam Vital signs and Labs for Last 24 Hours: Vital Signs Temp Pulse Resp BP Pulse Ox 06/23/22 07:38 98.2 F 110 H 18 117/81 90 L 06/23/22 03:38 98.1 F 107 H 16 115/68 93 L 06/22/22 20:00 114 H 93 L 06/23/22 00:00 97.9 F 114 H 18 124/67 93 L 06/22/22 20:00 98.2 F 113 H 18 132/75 94 L 06/22/22 15:16 98.0 F 98 H 18 110/64 96 06/22/22 12:44 97.8 F 115 H 18 102/66 L 96 Intake and Output 06/22/22 06/23/22 06/23/22 19:59 03:59 11:59 Intake Total 1109 / 1229 120 / 1229 Output Total 450 / 450 0 / 450 0 / 450 Balance 659 / 779 0 / 779 120 / 779 Intake: Intake, Oral Amount 0 / 120 120 / 120 Intake, Total IV Amount 1109 / 1109 0.9 % Sodium Chloride 1,830 ml 1109 / 1109 @ 915 mls/hr IV .Q2H ONE Rx#: [id number] Output: Output, Urine Amount 450 / 450 0 / 450 0 / 450 Other: Number of Unmeasured Voids 0 1 1 Number of Bowel Movements 1 Weight 134 lb 2 oz 135 lb 2 oz Patient Weight 06/23/22 11:59 Weight 135 lb 2 oz Laboratory Results - last 24 hr 06/22/22 13:12: WBC 9.8, RBC 4.35, Hgb 12.5, Hct 38.5, MCV 88.5, MCH 28.8, MCHC 32.5, RDW 14.2, Plt Count 250, MPV 9.3, Neut % (Auto) 73.7, Lymph % (Auto) 17.8, [place] % (Auto) 6.8, Eos % (Auto) 0.9, Baso % (Auto) 0.9, Neut # (Auto) 7.2, Lymph # (Auto) 1.7, [place] # (Auto) 0.7, Eos # (Auto) 0.1, Baso # (Auto) 0.1 06/22/22 13:12: Sodium 131 L, Potassium 3.6, Chloride 98, Carbon Dioxide 26, Anion Gap 10.6, BUN 10, Creatinine 0.30 L, Estimated Creat Clear 206, Estimated GFR 232, Est GFR ( Amer) 281, Glucose 92, Calcium 8.5, Phosphorus 3.2, Magnesium 1.6, Total Bilirubin 0.6, AST 154 H, ALT 90 H, Alkaline Phosphatase 396 H, Total Protein 5.9 L, Albumin 3.3 L, Globulin 2.6, Albumin/Globulin Ratio 1.3 06/22/22 13:12: Lactate 1.6 06/22/22 13:12: Amylase 81, Lipase 200 06/22/22 15:33: Urine Color Yellow, Urine Appearance Clear, Urine pH 6.0, Ur Specific [place] 1.020, Urine Protein Trace, Urine Glucose (UA) Negative, Urine Ketones 1+, Urine Blood Negative, Urine Nitrate Negative, Urine Bilirubin Negative, Urine Urobilinogen 0.2, Ur Leukocyte Esterase Negative, Urine RBC None, Urine WBC 3-5, Ur Squamous Epith Cells 10-20, Urine Bacteria Trace 06/22/22 18:36: Stl Aeromonas (PCR) Not detected, Stl C. cayetanensis PCR Not detected, Stool Rotavirus (PCR) Not detected, Stl Adenov F 40/41 PCR Not detected, Stool Astrovirus (PCR) Not detected, Stool Campylobacter PCR Not detected, Stl C.difficile Tox PCR Not detected, Stool Cryptosporidium PCR Not detected, Stl E.coli Shiga Tox PCR Not detected, Stool E coli O157 PCR Not detected, Stl Enterotoxigenic E PCR Not detected, Stool EPEC (PCR) Not detected, Stool EAEC (PCR) Not detected, Stl E. histolytica PCR Not detected, Stool Giardia Lamblia PCR Not detected, Stool Salmonella PCR Not detected, Stool Sapovirus (PCR) Not detected, Stl P. shigelloides PCR Not detected, Stl Shigella/EIEC PCR Not detected, St Y.enterocolitica PCR Not detected, Stool Vibrio (PCR) Not detected, Stl Vibrio cholerae PCR Not detected, Stl Norovirus GI/GII PCR Not detected 06/22/22 : SARS-CoV-2 (PCR) Not detected, Influenza A Untype (PCR) Not detected, Influenza Type B (PCR) Not detected I & O for Labs for Last 24 Hours: Intake & Output 06/20/22 06/21/22 06/22/22 06/23/22 11:59 11:59 11:59 11:59 Intake Total 1229 / 1229 Output Total 450 / 450 Balance 779 / 779 Weight 135 lb 2 oz Radiology Reports for the Last 24 Hours: CXR - Persistent right middle lobe airspace disease.? Given persistence of abnormality, central obstructing lesion is not excluded.? Possible right upper lobe mass.? ? CT chest with contrast r
--- NOTE | 2022-06-23 12:42 | CT_ITS ---
FINAL REPORT TECHNIQUE: Multiple axial CT sections were performed from the foramen magnum to the vertex. Coronal reformatted images were also obtained. Precontrast and postcontrast injection images were obtained. This study was performed with technique to keep radiation doses as low as reasonably achievable, (ALARA). Individualized dose reduction techniques using automated exposure control or adjustment of mA and/or kV according to the patient size were employed. CLINICAL HISTORY: headache, widespread meastatic disease SEVERE LEFT SIDED HEADACHE X3 DAYS FINDINGS: The ventricles are normal in size. There is no evidence of hemorrhage. There is a small hyperdense lesion in the right frontal lobe measuring 6 mm. There is a mass along the septum pellucidum measuring 16 mm. No extra-axial fluid collection is seen. The sinuses are normal. No osseous abnormality is seen on the bone window images. On the postcontrast images, there is subtle enhancement of the lesion on the noncontrast images. Additionally, there is suggestion of additional small enhancing intra-axial lesions. IMPRESSION: Multiple small enhancing intracranial lesions concerning for metastases. These would be much better evaluated with MRI. Reviewed, Interpreted and Dictated by Tata Rojas MD Transcribed by Hortensia Cates Authenticated and . [facility]
--- NOTE | 2022-06-23 18:29 | PC.NURSE ---
Patient complained of headache, tylenol given as well as morphine. VS stable, pt remained on room air. Some abdominal pain noted, no distention noted, morphine given for pain. No other needs verbalized
[2022-06-24] VITALS: BP 142/84; PULSE 110; RESP 18; TEMP 36.7; O2SAT 94
[2022-06-24 04:00] VITALS: BP 135/81; PULSE 104; RESP 16; TEMP 36.8; O2SAT 90; BMI 27.6
[2022-06-24 06:47] LABS: Basophils # 0.1 K/mm3 (0-0.2); Basophils % 0.9 % (0.1-2.0); Eosinophils # 0.1 K/mm3 (0.0-0.4); Eosinophils % 1.5 % (0.1-12.0); Hematocrit 38.6 % (37.0-47.0); Hemoglobin 12.1 g/dL (12.2-16.2); Lymphocytes # 1.5 K/mm3 (0.7-4.5); Lymphocytes % 23.9 % (10-50); Mean Corpuscular HGB Conc 31.2 g/dL (31.8-35.4); Mean Corpuscular Hemoglobin 28.9 pg (27.0-31.2); Mean Corpuscular Volume 92.5 fl (81-99); Mean Platelet Volume 9.2 fl (7.4-10.4); Monocytes # 0.4 K/mm3 (0.1-1.0); Neutrophils # 4.1 K/mm3 (1.8-7.8); Neutrophils % 66.8 % (37.0-80.0); Platelet Count 242 K/mm3 (142-424); Red Blood Count 4.17 M/mm3 (4.20-5.40); Red Cell Distribution Width 14.2 % (11.5-17.5); White Blood Count 6.1 K/mm3 (4.8-10.8)
[2022-06-24 06:59] LABS: Anion Gap 4.7 mEq/L (5-15); Blood Urea Nitrogen 4 mg/dl (7-17); Calcium 8.5 mg/dl (8.4-10.2); Carbon Dioxide 33 mmol/L (22.0-30.0); Chloride 97 mmol/L (98-107); Creatinine Clearance Estimated 162 mL/min (50-200); Estimated Glomerular Filt Rate 166 ml/min (>60); GFR (African American) 201 ML/MIN (>60); Glucose 90 mg/dl (74-100); Potassium 3.7 mmoL/L (3.5-5.1); Sodium 131 mmol/L (136-145)
[2022-06-24 07:04] LABS: Activated Partial Thrombo Time 27.9 seconds (22.8-30.6); Prothrombin Time 11.8 seconds (10.1-12.5)
[2022-06-24 08:00] VITALS: BP 126/58; PULSE 116; RESP 18; TEMP 36.7; O2SAT 93
--- NOTE | 2022-06-24 08:00 | CT_ITS ---
FINAL REPORT CLINICAL HISTORY: ct guided liver bx. poss liver mets. liver mass FINDINGS: CT GUIDED LIVER MASS CORE BIOPSY. HISTORY: Liver mass. ATTENDING PHYSICIAN: Dr. Rojas PHYSICIAN FRAME FEEDER: Jamar Edward PA-C PROCEDURE: After informed consent was obtained and a timeout was performed, the patient was prepped and draped in usual sterile fashion over the right upper quadrant. Utilizing local anesthesia and sterile technique with a coaxial system, access to lesion in the inferior right hepatic lobe was obtained. A total of 3 separate 18-gauge core biopsies were obtained. Sedation was provided by anesthesia. The patient tolerated the procedure well and left the department in good condition. IMPRESSION: Status post CT guided core biopsy of liver mass without immediate complication. Films reviewed , interpreted and dictated by Dr. Tata Rojas. Transcribed by Jamar Edward PA-C. Reviewed, Interpreted and Dictated by Tata Rojas MD Transcribed by ADELINA Mckeon Authenticated and [facility]
--- NOTE | 2022-06-24 08:22 | EXP.ACUTE.PN ---
Subjective *Date: 06/24/22 *Time: 08:58 Interval history: Patient is complaining of a continued headache today along with pain in the left side of the abdomen and the chest. She states she slept off and on last night. She states Tylenol and morphine to help with the pain. She did try to eat small amounts yesterday but does not have much of an appetite. She has not had any further vomiting. Medical Exam Vital signs and Labs for Last 24 Hours: Vital Signs Temp Pulse Resp BP Pulse Ox 06/24/22 04:00 98.2 F 104 H 16 135/81 90 L 06/24/22 00:00 98.0 F 110 H 18 142/84 H 94 L 06/23/22 19:57 98.1 F 114 H 20 127/83 90 L 06/23/22 15:30 98.0 F 105 H 18 128/79 91 L 06/23/22 11:37 98.4 F 109 H 18 118/64 92 L 06/23/22 09:06 16 Intake and Output 06/23/22 06/24/22 06/24/22 19:59 03:59 11:59 Intake Total 600 / 600 Output Total 0 / 0 0 / 0 Balance 600 / 600 0 / 600 Intake: Intake, Oral Amount 600 / 600 Output: Output, Urine Amount 0 / 0 0 / 0 Other: Number of Unmeasured Voids 1 1 Weight 140 lb 6.4 oz Patient Weight 06/24/22 11:59 Weight 140 lb 6.4 oz Laboratory Results - last 24 hr 06/24/22 06:15: PT 11.8, INR 1.10, APTT 27.9 06/24/22 06:39: WBC 6.1 D, RBC 4.17 L, Hgb 12.1 L, Hct 38.6, MCV 92.5, MCH 28.9, MCHC 31.2 L, RDW 14.2, Plt Count 242, MPV 9.2, Neut % (Auto) 66.8, Lymph % (Auto) 23.9, [place] % (Auto) 7.0, Eos % (Auto) 1.5, Baso % (Auto) 0.9, Neut # (Auto) 4.1, Lymph # (Auto) 1.5, [place] # (Auto) 0.4, Eos # (Auto) 0.1, Baso # (Auto) 0.1 03/03/23 06:39: Sodium 131 L, Potassium 3.7, Chloride 97 L, Carbon Dioxide 33 H, Anion Gap 4.7 L, BUN 4 L D, Creatinine 0.40 L D, Estimated Creat Clear 162, Estimated GFR 166, Est GFR ( Amer) 201 D, Glucose 90, Calcium 8.5 I & O for Labs for Last 24 Hours: Intake & Output 06/21/22 06/22/22 06/23/22 06/24/22 11:59 11:59 11:59 11:59 Intake Total 2123 / 2123 600 / 600 Output Total 450 / 450 0 / 0 Balance 1673 / 1673 600 / 600 Weight 135 lb 2 oz 140 lb 6.4 oz Radiology Reports for the Last 24 Hours: Head CT - Multiple small enhancing intracranial lesions concerning for metastases.? These would be much better evaluated with MRI. Constitutional: Present no acute distress Respiratory: Present decreased breath sounds Cardiac: Present Regular Rhythm, Systolic Murmur (on right side of the chest) and Tachycardia GI: Present soft and tenderness (upper abdomen, worse on the left side); Absent distention or guarding Extremities: Present edema (trace bilateral LE edema) Neuro: Present alert and awake Assessment and Plan *Assessment and plan (1) Mass of multiple sites of liver: Status: Acute Category: Medical Code(s): R16.0 - Hepatomegaly, not elsewhere classified (2) Mass of lung: Status: Acute Category: Medical Code(s): R91.8 - Other nonspecific abnormal finding of lung field (3) Bone lesion: Status: Acute Category: Medical Code(s): M89.9 - Disorder of bone, unspecified (4) Brain metastases: Status: Acute Category: Medical Code(s): C79.31 - Secondary malignant neoplasm of brain (5) Abnormal CXR: Status: Acute Category: Medical Code(s): R93.89 - Abnormal findings on diagnostic imaging of other specified body structures (6) Elevated alkaline phosphatase level: Status: Acute Category: Medical Code(s): R74.8 - Abnormal levels of other serum enzymes (7) Elevated LFTs: Status: Acute Category: Medical Code(s): R79.89 - Other specified abnormal findings of blood chemistry (8) Jones's palsy: Status: Acute Category: Medical Code(s): G51.0 - Jones's palsy (9) Tobacco use disorder: Status: Acute Category: Medical Code(s): F17.200 - Nicotine dependence, unspecified, uncomplicated (10) Tachycardia: Status: Acute Category: Medic
--- NOTE | 2022-06-24 09:09 | EXP.ANES.CKL ---
[facility] Disclaimer: The information contained in this section may have been updated after the patient was seen, as this information can be updated by other users. Surgical History (Updated 06/22/22 @ 13:19 by Hortensia Bhandari APRN) H/O knee surgery Hx of hand surgery S/P carpal tunnel release Family History (Updated 06/22/22 @ 13:35 by Hortensia Bhandari APRN) Other Coronary artery disease Social History Smoking Status: Current every day smoker tobacco type: cigarettes alcohol intake: never substance use type: denies use current occupational status: other Travel in the last 8 weeks: None household members: family housing: house [facility] Anesthesia Checklist Patient Identification Patient Identification: Arm Band Structural Data Admitted From: Inpatient Planned Operative Procedure/s: CT Guided Liver Biopsy Consent for Planned Operative Procedure(s) Verified: Yes Verified Documents: Surgical Consent and History and Physical NPO Status Verified Time NPO: 00:00 Additional verifications Anesthesia Reactions: No Airway Assessment C-Spine Mobility Assessed: Yes TMJ Mobility Assessed: Yes Dentition: Good Dentition Neurological Assessment Level of Consciousness: Awake and Alert Anesthesia Plan Anesthesia Risk discussed: Yes Anesthesia Plan: Verified ASA Class: III Anesthesia Type: MAC
[2022-06-24 12:00] VITALS: BP 115/72; PULSE 106; RESP 24; TEMP 36.6; O2SAT 81
--- NOTE | 2022-06-24 12:00 | PC.NURSE ---
1200- pt sating 81 on room air at rest 3lnc applied. dr forman made aware
--- NOTE | 2022-06-24 13:00 | PC.NURSE ---
o2 titrated to 2lnc
[2022-06-24 16:00] VITALS: BP 119/78; PULSE 111; RESP 18; TEMP 36.6; O2SAT 96
[2022-06-24 20:00] VITALS: BP 140/85; PULSE 116; RESP 20; TEMP 36.7; O2SAT 91
[2022-06-25] VITALS: BP 116/79; PULSE 113; RESP 16; TEMP 36.8; O2SAT 91
[2022-06-25 04:00] VITALS: BP 142/86; PULSE 96; RESP 16; TEMP 36.7; O2SAT 96; BMI 28.3
--- NOTE | 2022-06-25 05:22 | PC.NURSE ---
pt A&OX4. c/o of pain X2, medicated prn per mar. ambulates to and from bathroom with assistance. tolerating 2L O2 per NC with sats >90%.
[2022-06-25 08:00] VITALS: BP 141/81; PULSE 120; RESP 20; TEMP 36.8; O2SAT 90; O2SAT 91
--- NOTE | 2022-06-25 08:48 | PC.NURSE ---
tech note; notified nurse of high heart rate for 0800 vital signs.
--- NOTE | 2022-06-25 09:01 | EXP.ACUTE.PN ---
Subjective *Date: 06/25/22 *Time: 09:01 Interval history: Patient feels a little better this morning. Diarrhea has almost completely resolved. She is still having some abd pain and is still requiring supplemental oxygen. Medical Exam Vital signs and Labs for Last 24 Hours: Vital Signs Temp Pulse Resp BP Pulse Ox 06/25/22 08:00 98.3 F 120 H 20 141/81 H 90 L 06/25/22 04:00 98.1 F 96 H 16 142/86 H 96 06/25/22 00:00 98.3 F 113 H 16 116/79 91 L 06/24/22 20:00 98.1 F 116 H 20 140/85 91 L 06/24/22 16:00 97.9 F 111 H 18 119/78 96 06/24/22 12:00 97.8 F 106 H 24 115/72 81 L Intake and Output 06/24/22 06/25/22 06/25/22 23:59 07:59 15:59 Intake Total 240 / 240 240 / 240 Balance 240 / 240 240 / 240 Intake: Intake, Oral Amount 240 / 240 240 / 240 Other: Weight 144 lb 9.6 oz Patient Weight 06/25/22 23:59 Weight 144 lb 9.6 oz I & O for Labs for Last 24 Hours: Intake & Output 06/22/22 06/23/22 06/24/22 06/25/22 23:59 23:59 23:59 23:59 Intake Total 1109 / 1109 1614 / 1614 240 / 240 240 / 240 Output Total 450 / 450 0 / 0 0 / 0 Balance 659 / 659 1614 / 1614 240 / 240 240 / 240 Weight 134 lb 2 oz 135 lb 2 oz 140 lb 6.4 oz 144 lb 9.6 oz Microbiology Reports for the Last 24 Hours: Microbiology 06/22/22 14:31 Blood Blood Culture - Preliminary NO GROWTH AFTER 48 HOURS 06/22/22 14:31 Blood Blood Culture - Preliminary NO GROWTH AFTER 48 HOURS Constitutional: Present no acute distress Respiratory: Present normal respiratory effort Cardiac: Present Reg Rate and Rhythm and Systolic Murmur GI: Present tenderness (more upper than lower) and normal bowel sounds; Absent guarding, rebound or rigidity Extremities: Present normal inspection and full ROM Skin: Present intact; Absent erythema Comment:: biopsy site on RUQ is healing well Assessment and Plan *Assessment and plan (1) Mass of multiple sites of liver: Status: Acute Category: Medical Code(s): R16.0 - Hepatomegaly, not elsewhere classified (2) Mass of lung: Status: Acute Category: Medical Code(s): R91.8 - Other nonspecific abnormal finding of lung field (3) Bone lesion: Status: Acute Category: Medical Code(s): M89.9 - Disorder of bone, unspecified (4) Brain metastases: Status: Acute Category: Medical Code(s): C79.31 - Secondary malignant neoplasm of brain (5) Abnormal CXR: Status: Acute Category: Medical Code(s): R93.89 - Abnormal findings on diagnostic imaging of other specified body structures (6) Elevated alkaline phosphatase level: Status: Acute Category: Medical Code(s): R74.8 - Abnormal levels of other serum enzymes (7) Elevated LFTs: Status: Acute Category: Medical Code(s): R79.89 - Other specified abnormal findings of blood chemistry (8) Jones's palsy: Status: Acute Category: Medical Code(s): G51.0 - Jones's palsy (9) Tobacco use disorder: Status: Acute Category: Medical Code(s): F17.200 - Nicotine dependence, unspecified, uncomplicated (10) Tachycardia: Status: Acute Category: Medical Code(s): R00.0 - Tachycardia, unspecified (11) Hypertension: Status: Acute Category: Medical Code(s): I10 - Essential (primary) hypertension (12) Acute abdominal pain: Status: Acute Category: Medical Code(s): R10.9 - Unspecified abdominal pain (13) Diarrhea: Status: Acute Category: Medical Code(s): R19.7 - Diarrhea, unspecified (14) Hyponatremia: Status: Acute Category: Medical Code(s): E87.1 - Hypo-osmolality and hyponatremia (15) Hypotension: Status: Acute Category: Medical Code(s): I95.9 - Hypotension, unspecified (16) Hypoxia: Status: Acute
--- NOTE | 2022-06-25 09:34 | PC.NURSE ---
pt 86% on room air at rest
--- NOTE | 2022-06-27 14:09 | CARE MANAGER ---
Contacted patient related to hospital discharge. She did pickle sorter medication and is aware of follow up appointment. denies questions or concerns. KARTIK Mae
--- NOTE | 2022-06-27 16:02 | EXP.DC.SUM ---
General Admission date:: 06/22/22 Discharge date: 06/25/22 HPI HPI HPI: Ms. Zeng is a 56-year-old female with a history of hypertension, hyperlipidemia, tachycardia, smoking disorder, and recent Jones's palsy and diarrhea and abdominal pain who presented to the office of [facility] for follow-up on Jones's palsy and her abdominal pain. She had been seen in the office several times for the diarrhea. The last diarrhea panel was negative. She does have a history of recent C. difficile and has had 7 days of Flagyl. Diarrhea did improve but never completely resolved. She also experienced some nausea and vomiting. The abdominal pain initially was mostly in the right upper quadrant and a right upper quadrant ultrasound was ordered. Insurance would not cover and she did not have it completed. When seen in the office last week CT of the abdomen/pelvis was ordered and again her insurance would not cover in most facilities. Arrangements were going to be made for her to have this done either in [place] or [place] if necessary. Meanwhile the abdominal pain worsened and with follow-up today was severe. She denied having a fever but did have some upper respiratory symptoms to include a congested cough. She was voiding QS. She denied hematemesis and any bloodly or black stools. CBC showed a white count of 10,100. She was receiving a tapering dose of prednisone for her Jones's palsy. This seemed to have improved. With presentation on day of admission she appeared miserable due to the abdominal pain. Case was discussed with Dr. Goncalves and decision made to admit her having failed outpatient treatment with Bentyl. CT of the abdomen and pelvis along with diarrhea panel and sepsis protocol were ordered. Hospital Course Hospital Course Hospital Course: On admission patient was started on morphine for pain and Zofran for her nausea. She had multiple CT scans which revealed metastatic cancer disease involving the liver, lungs, bone, and head. She did have a liver biopsy done prior to discharge with pending results. See Data for study results She had an ongoing headache which did improve with pain management. Diarrhea did improve and almost resolved at discharge. She was able to eat a little. She was started on oxygen due to shortness of breath and decrease in O2 sats. She continued to be able to ambulate.She was transitioned to hydrocodone/acetaminophen for her pain. Arrangements were in the process for further cancer management with the [facility].. Patient was discharged in stable condition. Exam Data for Last 24 hours Vital signs and Labs for Last 24 Hours: Temp Pulse Resp BP Pulse Ox 98.3 F 120 H 20 141/81 H 91 L 06/25/22 08:00 06/25/22 08:00 06/25/22 08:00 06/25/22 08:00 06/25/22 08:00 I & O for Last 24 hours: Intake & Output 06/25/22 06/26/22 06/27/22 06/28/22 11:59 11:59 11:59 11:59 Intake Total 480 / 480 Balance 480 / 480 Weight 144 lb 9.6 oz Microbiology Reports for the Last 24 Hours: Microbiology 06/22/22 14:31 Blood Blood Culture - Final NO GROWTH AFTER 5 DAYS 06/22/22 14:31 Blood Blood Culture - Final NO GROWTH AFTER 5 DAYS Narrative: Medical Exam Vital signs and Labs for Last 24 Hours: Vital Signs ? Temp Pulse Resp BP Pulse Ox ?06/25/22 08:00 ?98.3 F ?120 H ?20 ?141/81 H ?90 L ?06/25/22 04:00 ?98.1 F ?96 H ?16 ?142/86 H ?96 ?06/25/22 00:00 ?98.3 F ?113 H ?16 ?116/79 ?91 L ?06/24/22 20:00 ?98.1 F ?116 H ?20 ?140/85 ?91 L ?06/24/22 16:00 ?97.9 F ?111 H ?18 ?119/78 ?96 ?06/24/22 12:00 ?97.8 F ?106 H ?24 ?115/72 ?81 L Intake and Output ? 06/24/22 06/25/22 06/25/22 ? 23:59 07:59 15:59 Intake Total 240 / 240 ? 240 / 240 Balance 240 / 240 ? 240 / 240 Intake: ? Intake, Oral Amount 240 / 240 ? 240 / 240 Other: ? Weight ? 144 lb 9.6 oz ? Patient Weight ? 06/25/22 ? 23:59 Weight
== END 2022-06-25 11:51 | disposition home or self-care (01) ==
PROVIDERS: Nurse Practitioner Family; Admitting Provider Family Medicine; PCP Family Medicine; Visit Provider Family Medicine
DX: G51.0 Bell's palsy (principal); F17.210 Nicotine dependence, cigarettes, uncomplicated; I10 Essential (primary) hypertension; E87.1 Hypo-osmolality and hyponatremia; I95.9 Hypotension, unspecified; R09.02 Hypoxemia; R16.0 Hepatomegaly, not elsewhere classified; R19.7 Diarrhea, unspecified; Z20.822 Contact with and (suspected) exposure to COVID-19; Z79.899 Other long term (current) drug therapy; R10.9 Unspecified abdominal pain
CPT/HCPCS: 47000; 36415; 70470; 71046; 71260; 74178; 77012; 80048; 80053; 81001; 82150; 83605; 83690; 83735; 84100; 85025; 85610; 85730; 87040; 87507; C9803; G0378; J2405; Q9966; Q9967; U0003; U0005